=== PATIENT | female | born 2000 | race African-American/Black ===

== ENCOUNTER 2021-08-27 07:47 | Inpatient (IN) | payer OTHER ==
[2021-08-27] MEDS ORDERED: ceFAZolin (BATCH) 2 GM/100 ML BAG ONE (07:56)
[2021-08-27] MEDS ORDERED: Boostrix 0.5 ML (Tdap) VIAL ONE (07:56)
[2021-08-27 08:01] LABS: #Basophils 0.1 thou/uL (0.0-0.2); #Eosinphils 0.1 thou/uL (0.0-0.7); #Lymphocytes 1.9 thou/uL (1.20-3.40); #Monocytes 0.5 thou/uL (0.11-0.59); #Neutrophils 2.3 thou/uL (1.40-6.50); %Basophils 2.1 % (0.0-1.0); %Eosinophils 1.8 % (0.0-10.0); %Neutrophils 47.1 % (42.0-75.0); Hemoglobin 10.5 g/dL (12.0-16.0); Mean Corpuscular HGB CONC 31.7 g/dL (32.0-36.0); Mean Corpuscular Hemoglobin 29.6 pg (27.0-31.0); Mean Corpuscular Volume 93.5 fL (78.0-98.0); Mean Platelet Volume 9.3 fL (7.4-10.4); Platelet Count 160 thou/uL (130-400); RBC Distribution Width 12.1 % (11.5-14.5); Red Blood Cell (RBC) Count 3.55 mill/uL (4.20-5.40); White Blood Cell (WBC) Count 4.9 thou/uL (4.8-10.8)
[2021-08-27 08:09] LABS: INR-International Normal Ratio 1.3; PTT 36.3 sec (22.9-36.1); Prothrombin Time 16.2 sec (12.0-14.7)
[2021-08-27 08:10] LABS: BHCG - Serum Negative (NEGATIVE); Pregs Control Background? CLEAR/WHITE (CLR/WHITE); Pregs Control Bar Appear? YES (CONTROL BAR)
[2021-08-27] MEDS ORDERED: Fentanyl 100 MCG/2 ML VIAL ONE ×2 (08:13→08:17)
[2021-08-27] MEDS ORDERED: Rocuronium Bromide 10 MG/ML (10ML VIAL) ONE (08:17)
[2021-08-27 08:19] LABS: ALT (SGPT) 14 U/L (8-55); AST (SGOT) 21 U/L (5-34); Albumin 3.3 g/dL (3.5-5.0); Alkaline Phosphatase 34 U/L (40-110); Anion Gap 10 mmol/L (10-20); BUN (Urea Nitrogen) 9 mg/dL (7.0-18.7); Bilirubin, Total 0.2 mg/dL (0.2-1.2); Calc. Creatinine Clearance 0 mL/min (70-130); Calcium 7.5 mg/dL (7.8-10.44); Carbon Dioxide 22 mmol/L (22-29); Chloride 110 mmol/L (98-107); Glucose 110 mg/dL (70-105); Potassium 3.2 mmol/L (3.5-5.1); Protein, Total 5.3 g/dL (6.0-8.3); Sodium 139 mmol/L (136-145)
[2021-08-27] MEDS ORDERED: Norepinephrine 4 MG/4 ML VIAL ONE ×2 (08:27→08:32)
[2021-08-27] MEDS ORDERED: fentaNYL Citrate-0.9 % NaCl/PF 100 ML IV SCH (08:30)
[2021-08-27] MEDS ORDERED: Dextrose 50% Abboject 50 ML SYRINGE SLOW IVP PRN (08:35)
[2021-08-27] MEDS ORDERED: hydrALAZINE 20 MG/ML VIAL SLOW IVP PRN (08:35)
[2021-08-27] MEDS ORDERED: Insulin Regular 300 UNITS/3 ML VIAL SC PRN (08:35)
[2021-08-27] MEDS ORDERED: Dextrose 5% in Water 1,000 ML IV PRN (08:35)
[2021-08-27] MEDS ORDERED: Midazolam HCl 2 mg/2 ml Vial ONE (08:41)
[2021-08-27] MEDS ORDERED: Fentanyl 250 MCG/5 ML VIAL ONE (08:41)
[2021-08-27] MEDS ORDERED: EPINEPHrine 1 MG/10 ML Abboject SYRINGE ONE (08:44)
[2021-08-27] MEDS ORDERED: Norepinephrine 16 MG in Dextrose 5% in Water 234 ML IVPB SCH (08:45)
[2021-08-27] MEDS ORDERED: Ventilator Sedation Protocol 1 EACH FS SCH (08:45)
[2021-08-27] MEDS ORDERED: Propofol BOLUS 1,000 MG/100 ML VIAL IV PRN (09:00)
[2021-08-27] MEDS ORDERED: Fentanyl BOLUS 250 ML IVPB PRN (09:00)
[2021-08-27] MEDS ORDERED: DISCONTINUE PREVIOUS NARCOTIC PAIN MEDICATIONS AND BENZODIAZEPINES FS SCH (09:00)
[2021-08-27] MEDS ORDERED: Morphine 4 MG/ML VIAL SLOW IVP PRN (09:00)
[2021-08-27] MEDS ORDERED: Propofol 1,000 MG/100 ML VIAL IV PRN (09:00)
[2021-08-27] MEDS ORDERED: fentaNYL Citrate/PF 2,000 MCG in Sodium Chloride 0.9% 60 ML IV SCH (09:00)
[2021-08-27] MEDS ORDERED: Morphine 2 MG/ML VIAL SLOW IVP PRN (09:00)
[2021-08-27 09:09] LABS: Alcohol Less than 10 mg/dL (Less than 10); Magnesium 1.6 mg/dL (1.6-2.6); Phosphorus 2.6 mg/dL (2.3-4.7)
[2021-08-27] MEDS ORDERED: ePHEDrine 50 MG/ML VIAL ONE (09:46)
[2021-08-27] MEDS ORDERED: Bacitracin Zinc Ointment 30 gm TUBE ONE (09:57)
[2021-08-27] MEDS: Sodium Chloride 0.9% 1,000 ML IV SCH ×2 (10:38→18:32)
[2021-08-27] MEDS: Senokot S 8.6-50 MG TAB PO SCH ×2 (10:59→20:48)
[2021-08-27] MEDS: Polyethylene Glycol 3350 17 GM Packet PO SCH (10:59)
[2021-08-27] MEDS: Acetaminophen 500 MG TAB PO SCH ×3 (11:25→20:51)
[2021-08-27] MEDS: Famotidine/PF 20 mg/2ml Vial SLOW IVP SCH ×2 (11:26→20:48)
[2021-08-27 11:34] LABS: Bilirubin Negative (Negative); Blood, Urine Negative (Negative); Clarity Clear (Clear); Glucose, Urine (Dipstick) Normal (Negative); Ketone, Urine Trace mg/dL (Negative); Leukocyte Negative Leu/uL (Negative); Nitrite Negative (Negative); Protein, Urine (Dipstick) Negative (Neg-Trace); Specific Gravity, Urine 1.031 (1.002-1.036); Urobilinogen Normal mg/dL (Less than 2)
[2021-08-27 11:46] LABS: Amphetamine Not Detected (NotDetected); Barbiturates Screen Not Detected (NotDetected); Benzodiazepine Screen Not Detected (NotDetected); Cocaine Metabolite Screen Not Detected (NotDetected); Methadone Not Detected (NotDetected); Methamphetamine Detected (NotDetected); Opiate Screen Not Detected (NotDetected); Oxycodone Screen Not Detected (NotDetected); Phencyclidine (PCP) Not Detected (NotDetected); THC/Cannabinoid Screen Detected (NotDetected); Tricyclic Screen Not Detected (NotDetected)
[2021-08-27] MEDS ORDERED: Potassium Phosphate 30 MMOL in Sodium Chloride 0.9% 250 ML 250 ML IVPB SCH (12:30)
[2021-08-27] MEDS ORDERED: Magnesium 2 GM/50 ML(in water) 2 GM in Premix Bag 1 BAG IVPB SCH (12:30)
[2021-08-27] MEDS: fentaNYL Citrate-0.9 % NaCl/PF 100 ML IV SCH (12:33)
[2021-08-27] MEDS ORDERED: Atropine Sulfate 1 mg/10 ml Syringe ONE (15:58)
[2021-08-27] MEDS ORDERED: Atropine Sulfate 1 mg/10 ml Syringe IVP PRN (16:10)
[2021-08-27] MEDS: Lorazepam 2 MG/ML VIAL SLOW IVP PRN (21:22)
[2021-08-28] MEDS: Sodium Chloride 0.9% 1,000 ML IV SCH ×3 (02:07→18:14)
[2021-08-28] MEDS ORDERED: Sodium Chloride 0.9% 1,000 ML IV SCH (02:15)
[2021-08-28] MEDS: Acetaminophen 500 MG TAB PO SCH ×4 (02:24→21:39)
[2021-08-28] MEDS: fentaNYL Citrate-0.9 % NaCl/PF 100 ML IV SCH (02:25)
[2021-08-28 03:24] LABS: Anion Gap 11 mmol/L (10-20); BUN (Urea Nitrogen) 6 mg/dL (7.0-18.7); Calc. Creatinine Clearance 115 mL/min (70-130); Calcium 7.1 mg/dL (7.8-10.44); Carbon Dioxide 18 mmol/L (22-29); Chloride 112 mmol/L (98-107); Glucose 99 mg/dL (70-105); Phosphorus 3.2 mg/dL (2.3-4.7); Potassium 3.8 mmol/L (3.5-5.1); Sodium 137 mmol/L (136-145)
[2021-08-28 03:37] LABS: #Lymphocytes 1.6 thou/uL (1.20-3.40); #Monocytes 0.9 thou/uL (0.11-0.59); #Neutrophils 7.6 thou/uL (1.40-6.50); %Basophils 0.2 % (0.0-1.0); %Eosinophils 0.1 % (0.0-10.0); %Lymphocytes 15.9 % (21.0-51.0); %Monocytes 8.4 % (0.0-10.0); %Neutrophils 75.4 % (42.0-75.0); Hemoglobin 9.3 g/dL (12.0-16.0); Mean Corpuscular HGB CONC 32.8 g/dL (32.0-36.0); Mean Corpuscular Hemoglobin 30.6 pg (27.0-31.0); Mean Corpuscular Volume 93.4 fL (78.0-98.0); Mean Platelet Volume 9.9 fL (7.4-10.4); Platelet Count 152 thou/uL (130-400); RBC Distribution Width 12.2 % (11.5-14.5); Red Blood Cell (RBC) Count 3.03 mill/uL (4.20-5.40); White Blood Cell (WBC) Count 10.1 thou/uL (4.8-10.8)
[2021-08-28] MEDS ORDERED: Hydrocortisone Sod Succ/PF 100 mg/2 ml Vial IVP SCH (07:45)
[2021-08-28] MEDS ORDERED: Albumin 5% 250 ML ONE (07:50)
[2021-08-28] MEDS: Senokot S 8.6-50 MG TAB PO SCH ×2 (08:58→21:39)
[2021-08-28] MEDS: Polyethylene Glycol 3350 17 GM Packet PO SCH (08:58)
[2021-08-28] MEDS: Famotidine/PF 20 mg/2ml Vial SLOW IVP SCH (08:58)
[2021-08-28] MEDS: Midazolam HCl 2 mg/2 ml Vial SLOW IVP PRN ×2 (10:13→21:40)
[2021-08-28] MEDS: Ondansetron PF 4 MG/2 ML Vial IVP PRN (13:20)
[2021-08-28] MEDS: Hydrocortisone Sod Succ/PF 100 mg/2 ml Vial IVP SCH ×2 (13:55→21:39)
[2021-08-28] MEDS: Lorazepam 2 MG/ML VIAL SLOW IVP PRN (14:41)
[2021-08-28] MEDS ORDERED: Pantoprazole 40 MG VIAL IVP SCH (20:30)
[2021-08-29] MEDS: Acetaminophen 500 MG TAB PO SCH ×4 (03:44→20:49)
[2021-08-29] MEDS: Sodium Chloride 0.9% 1,000 ML IV SCH ×3 (03:45→16:52)
[2021-08-29] MEDS: Hydrocortisone Sod Succ/PF 100 mg/2 ml Vial IVP SCH ×3 (05:19→20:49)
[2021-08-29] MEDS: Midazolam HCl 2 mg/2 ml Vial SLOW IVP PRN ×2 (06:19→17:36)
[2021-08-29] MEDS: Polyethylene Glycol 3350 17 GM Packet PO SCH (07:23)
[2021-08-29] MEDS: Senokot S 8.6-50 MG TAB PO SCH ×2 (07:23→20:48)
[2021-08-29] MEDS: Lorazepam 2 MG/ML VIAL SLOW IVP PRN ×3 (08:52→22:44)
[2021-08-29] MEDS ORDERED: Pantoprazole 40 MG VIAL IVP SCH (09:00)
[2021-08-29 10:01] LABS: Hemoglobin 10.1 g/dL (12.0-16.0); Mean Corpuscular HGB CONC 32.1 g/dL (32.0-36.0); Mean Corpuscular Hemoglobin 29.9 pg (27.0-31.0); Mean Corpuscular Volume 92.9 fL (78.0-98.0); Mean Platelet Volume 9.8 fL (7.4-10.4); Platelet Count 192 thou/uL (130-400); RBC Distribution Width 12.4 % (11.5-14.5); Red Blood Cell (RBC) Count 3.39 mill/uL (4.20-5.40); White Blood Cell (WBC) Count 11.4 thou/uL (4.8-10.8)
[2021-08-29 10:19] LABS: #Lymphocytes 1.2 thou/uL (1.20-3.40); #Monocytes 1.2 thou/uL (0.11-0.59); %Basophils 0.1 % (0.0-1.0); %Eosinophils 0.1 % (0.0-10.0); %Lymphocytes 10.3 % (21.0-51.0); %Monocytes 10.6 % (0.0-10.0); %Neutrophils 78.8 % (42.0-75.0); MDiff Complete? YES; Platelet Morphology Comment Appears Adequate; Polychromasia SLIGHT = 2-3 cells (100X) (0-2/hpf)
[2021-08-29 10:37] LABS: Anion Gap 11 mmol/L (10-20); BUN (Urea Nitrogen) 7 mg/dL (7.0-18.7); Calc. Creatinine Clearance 131 mL/min (70-130); Calcium 7.9 mg/dL (7.8-10.44); Carbon Dioxide 20 mmol/L (22-29); Chloride 110 mmol/L (98-107); Glucose 97 mg/dL (70-105); Phosphorus 1.8 mg/dL (2.3-4.7); Potassium 3.9 mmol/L (3.5-5.1); Sodium 137 mmol/L (136-145)
[2021-08-29] MEDS ORDERED: Potassium Phosphate 30 MMOL in Sodium Chloride 0.9% 250 ML 250 ML IVPB SCH (10:45)
[2021-08-29] MEDS ORDERED: Fentanyl 250 MCG/5 ML VIAL ONE (11:03)
[2021-08-29] MEDS ORDERED: Midazolam HCl 5 mg/5 ml Vial ONE (11:14)
[2021-08-29] MEDS ORDERED: Dexamethasone 20 MG/5 ML VIAL ONE (11:27)
[2021-08-29] MEDS ORDERED: Vecuronium 10 MG VIAL ONE (11:27)
[2021-08-29] MEDS ORDERED: PROPOFOL 200 MG/20 ML VIAL ONE (11:27)
[2021-08-29] MEDS: fentaNYL Citrate-0.9 % NaCl/PF 100 ML IV SCH (14:24)
[2021-08-29] MEDS: ceFAZolin (BATCH) 2 GM in Premix Bag 1 BAG IVPB SCH ×2 (16:12→23:49)
[2021-08-29] MEDS: Pantoprazole 40 MG VIAL IVP SCH (20:50)
[2021-08-29] MEDS ORDERED: ALBUMIN 5% 25 GM/500 ML BAG IVPB SCH (23:15)
[2021-08-30] MEDS ORDERED: Melatonin 3 MG TAB PER TUBE SCH (02:30)
[2021-08-30] MEDS: Acetaminophen 500 MG TAB PO SCH ×2 (02:34→15:19)
[2021-08-30] MEDS: Sodium Chloride 0.9% 1,000 ML IV SCH ×3 (04:57→20:59)
[2021-08-30 05:39] LABS: #Lymphocytes 1.1 thou/uL (1.20-3.40); #Monocytes 1.6 thou/uL (0.11-0.59); #Neutrophils 12.7 thou/uL (1.40-6.50); %Basophils 0.1 % (0.0-1.0); %Eosinophils 0.1 % (0.0-10.0); %Lymphocytes 7.2 % (21.0-51.0); %Monocytes 10.4 % (0.0-10.0); %Neutrophils 82.2 % (42.0-75.0); Hemoglobin 9.3 g/dL (12.0-16.0); Mean Corpuscular HGB CONC 32.6 g/dL (32.0-36.0); Mean Corpuscular Hemoglobin 30.3 pg (27.0-31.0); Mean Corpuscular Volume 92.8 fL (78.0-98.0); Mean Platelet Volume 9.2 fL (7.4-10.4); Platelet Count 190 thou/uL (130-400); RBC Distribution Width 12.4 % (11.5-14.5); Red Blood Cell (RBC) Count 3.06 mill/uL (4.20-5.40); White Blood Cell (WBC) Count 15.5 thou/uL (4.8-10.8)
[2021-08-30 06:16] LABS: Anion Gap 11 mmol/L (10-20); BUN (Urea Nitrogen) 7 mg/dL (7.0-18.7); Calc. Creatinine Clearance 134 mL/min (70-130); Calcium 8.4 mg/dL (7.8-10.44); Carbon Dioxide 22 mmol/L (22-29); Chloride 109 mmol/L (98-107); Glucose 122 mg/dL (70-105); Magnesium 2.2 mg/dL (1.6-2.6); Phosphorus 2.3 mg/dL (2.3-4.7); Potassium 3.9 mmol/L (3.5-5.1); Sodium 138 mmol/L (136-145)
[2021-08-30] MEDS: Hydrocortisone Sod Succ/PF 100 mg/2 ml Vial IVP SCH ×2 (06:26→15:19)
[2021-08-30 07:21] LABS: Actual Bicarbonate (HCO3a) 22.4 mEq/L (22-28); Base Excess (BEa) -2.2 mEq/L (-2.0 to +3.0); CO2 Tension 37.7 mmHg (35.0-45.0); Calcium, Ionized (arterial) 1.18 mmol/L (1.12-1.30); Carboxyhemoglobin (COHb) 0.6 gm% (0.0-3.0); Hemoglobin (Hb) 12.1 g/dL (12.0-16.0); Potassium - ABG Lab 3.76 mmol/L (3.70-5.30); pH, Arterial 7.39 (7.35-7.45)
[2021-08-30 07:28] LABS: ALV-art Gradient 54.075 mmHg (0-20); Puncture Site RRA
[2021-08-30] MEDS: Pantoprazole 40 MG VIAL IVP SCH (08:59)
[2021-08-30] MEDS: Polyethylene Glycol 3350 17 GM Packet PO SCH (11:00)
[2021-08-30] MEDS: Enoxaparin Sodium 40 MG/0.4 ML SYRINGE SC SCH (11:00)
[2021-08-30] MEDS: Acetaminophen 650 MG/20.3 ML UDCUP PO SCH ×3 (11:00→20:58)
[2021-08-30] MEDS: Senokot S 8.6-50 MG TAB PO SCH ×2 (11:00→20:59)
[2021-08-30] MEDS: Acetaminophen W/ Codeine 5 ML UDCUP PO PRN (17:10)
[2021-08-31] MEDS: Acetaminophen 650 MG/20.3 ML UDCUP PO SCH ×4 (02:30→20:33)
[2021-08-31] MEDS ORDERED: traMADol HCl 50 MG TAB PO SCH (03:00)
[2021-08-31] MEDS: Sodium Chloride 0.9% 1,000 ML IV SCH ×3 (05:40→21:20)
[2021-08-31 05:43] LABS: #Monocytes 1.1 thou/uL (0.11-0.59); #Neutrophils 8.2 thou/uL (1.40-6.50); %Basophils 0.2 % (0.0-1.0); %Eosinophils 0.3 % (0.0-10.0); %Monocytes 9.3 % (0.0-10.0); %Neutrophils 72.2 % (42.0-75.0); Hemoglobin 9.8 g/dL (12.0-16.0); Mean Corpuscular HGB CONC 32.1 g/dL (32.0-36.0); Mean Corpuscular Volume 93.6 fL (78.0-98.0); Mean Platelet Volume 9.2 fL (7.4-10.4); Platelet Count 208 thou/uL (130-400); RBC Distribution Width 12.6 % (11.5-14.5); Red Blood Cell (RBC) Count 3.26 mill/uL (4.20-5.40); White Blood Cell (WBC) Count 11.3 thou/uL (4.8-10.8)
[2021-08-31 06:17] LABS: Anion Gap 13 mmol/L (10-20); BUN (Urea Nitrogen) 10 mg/dL (7.0-18.7); Calc. Creatinine Clearance 144 mL/min (70-130); Calcium 8.3 mg/dL (7.8-10.44); Carbon Dioxide 22 mmol/L (22-29); Chloride 109 mmol/L (98-107); Glucose 84 mg/dL (70-105); Magnesium 2.1 mg/dL (1.6-2.6); Phosphorus 1.8 mg/dL (2.3-4.7); Potassium 3.8 mmol/L (3.5-5.1); Sodium 140 mmol/L (136-145)
[2021-08-31] MEDS ORDERED: Potassium Phosphate 30 MMOL in Sodium Chloride 0.9% 250 ML 250 ML IVPB SCH (08:00)
[2021-08-31] MEDS ORDERED: Pantoprazole 40 MG VIAL IVP SCH (09:00)
[2021-08-31] MEDS ORDERED: Potassium Phosphate 15 MMOL in Sodium Chloride 0.9% 250 ML 250 ML IVPB SCH (09:15)
[2021-08-31] MEDS: Enoxaparin Sodium 40 MG/0.4 ML SYRINGE SC SCH (09:45)
[2021-08-31] MEDS: Polyethylene Glycol 3350 17 GM Packet PO SCH (13:07)
[2021-08-31] MEDS: Senokot S 8.6-50 MG TAB PO SCH ×2 (13:07→20:33)
[2021-08-31] MEDS: traMADol HCl 50 MG TAB PER TUBE PRN ×2 (14:21→20:35)
[2021-09-01] MEDS: Acetaminophen 650 MG/20.3 ML UDCUP PO SCH ×4 (02:03→20:05)
[2021-09-01] MEDS: traMADol HCl 50 MG TAB PER TUBE PRN ×3 (02:03→20:04)
[2021-09-01 05:38] LABS: #Lymphocytes 2.3 thou/uL (1.20-3.40); #Monocytes 1.1 thou/uL (0.11-0.59); #Neutrophils 5.4 thou/uL (1.40-6.50); %Basophils 0.4 % (0.0-1.0); %Eosinophils 0.3 % (0.0-10.0); %Lymphocytes 26.2 % (21.0-51.0); %Monocytes 12.6 % (0.0-10.0); %Neutrophils 60.5 % (42.0-75.0); Hemoglobin 10.2 g/dL (12.0-16.0); Mean Corpuscular HGB CONC 32.8 g/dL (32.0-36.0); Mean Corpuscular Hemoglobin 30.5 pg (27.0-31.0); Mean Platelet Volume 8.6 fL (7.4-10.4); Platelet Count 226 thou/uL (130-400); RBC Distribution Width 12.4 % (11.5-14.5); Red Blood Cell (RBC) Count 3.35 mill/uL (4.20-5.40); White Blood Cell (WBC) Count 8.8 thou/uL (4.8-10.8)
[2021-09-01 06:06] LABS: Anion Gap 11 mmol/L (10-20); BUN (Urea Nitrogen) 12 mg/dL (7.0-18.7); Calc. Creatinine Clearance 125 mL/min (70-130); Calcium 8.5 mg/dL (7.8-10.44); Carbon Dioxide 25 mmol/L (22-29); Chloride 106 mmol/L (98-107); Glucose 89 mg/dL (70-105); Magnesium 1.8 mg/dL (1.6-2.6); Phosphorus 2.7 mg/dL (2.3-4.7); Potassium 3.6 mmol/L (3.5-5.1); Sodium 138 mmol/L (136-145)
[2021-09-01] MEDS: Sodium Chloride 0.9% 1,000 ML IV SCH ×2 (06:10→14:57)
[2021-09-01] MEDS: Enoxaparin Sodium 40 MG/0.4 ML SYRINGE SC SCH (09:01)
[2021-09-01] MEDS: Senokot S 8.6-50 MG TAB PO SCH ×2 (09:02→20:05)
[2021-09-01] MEDS: Polyethylene Glycol 3350 17 GM Packet PO SCH (09:02)
[2021-09-01] MEDS ORDERED: Magnesium 2 GM/50 ML(in water) 2 GM in Premix Bag 1 BAG IVPB SCH (10:00)
[2021-09-01] MEDS: Famotidine 20 MG TAB PO SCH (20:05)
[2021-09-02] MEDS: traMADol HCl 50 MG TAB PER TUBE PRN ×3 (03:20→15:19)
[2021-09-02] MEDS: Acetaminophen 650 MG/20.3 ML UDCUP PO SCH ×4 (03:21→21:19)
[2021-09-02] MEDS: Famotidine 20 MG TAB PO SCH ×2 (08:54→21:10)
[2021-09-02] MEDS: Gabapentin 300 MG CAP PO SCH ×2 (08:55→21:11)
[2021-09-02] MEDS: Senokot S 8.6-50 MG TAB PO SCH ×2 (08:56→21:11)
[2021-09-02] MEDS: Enoxaparin Sodium 40 MG/0.4 ML SYRINGE SC SCH (08:56)
[2021-09-02] MEDS: Polyethylene Glycol 3350 17 GM Packet PO SCH (08:57)
[2021-09-02] MEDS: Methocarbamol 500 MG TAB PO PRN (21:11)
[2021-09-03] MEDS: Acetaminophen 650 MG/20.3 ML UDCUP PO SCH ×4 (02:20→21:04)
[2021-09-03] MEDS: traMADol HCl 50 MG TAB PER TUBE PRN ×2 (02:20→16:21)
[2021-09-03] MEDS: Melatonin 3 MG TAB PO PRN ×2 (02:20→21:03)
[2021-09-03] MEDS: Gabapentin 300 MG CAP PO SCH (08:11)
[2021-09-03] MEDS: Famotidine 20 MG TAB PO SCH ×2 (08:11→21:03)
[2021-09-03] MEDS: Methocarbamol 500 MG TAB PO PRN ×2 (08:12→21:03)
[2021-09-03] MEDS: Senokot S 8.6-50 MG TAB PO SCH ×2 (08:19→21:04)
[2021-09-03] MEDS: Ondansetron PF 4 MG/2 ML Vial IVP PRN (10:00)
[2021-09-03] MEDS: Pregabalin 50 MG CAP PO SCH ×2 (10:16→21:04)
[2021-09-03] MEDS: Polyethylene Glycol 3350 17 GM Packet PO SCH (10:23)
[2021-09-03] MEDS: Enoxaparin Sodium 40 MG/0.4 ML SYRINGE SC SCH (11:03)
[2021-09-03 14:00] LABS: #Eosinphils 0.1 thou/uL (0.0-0.7); #Lymphocytes 1.7 thou/uL (1.20-3.40); #Monocytes 0.7 thou/uL (0.11-0.59); #Neutrophils 4.5 thou/uL (1.40-6.50); %Basophils 0.6 % (0.0-1.0); %Eosinophils 1.2 % (0.0-10.0); %Lymphocytes 24.5 % (21.0-51.0); %Monocytes 9.8 % (0.0-10.0); Hemoglobin 10.8 g/dL (12.0-16.0); Mean Corpuscular HGB CONC 32.2 g/dL (32.0-36.0); Mean Corpuscular Hemoglobin 29.8 pg (27.0-31.0); Mean Corpuscular Volume 92.6 fL (78.0-98.0); Mean Platelet Volume 8.7 fL (7.4-10.4); Platelet Count 263 thou/uL (130-400); RBC Distribution Width 12.3 % (11.5-14.5); Red Blood Cell (RBC) Count 3.62 mill/uL (4.20-5.40); White Blood Cell (WBC) Count 7.1 thou/uL (4.8-10.8)
[2021-09-03 14:24] LABS: Albumin 3.6 g/dL (3.5-5.0); Anion Gap 11 mmol/L (10-20); BUN (Urea Nitrogen) 8 mg/dL (7.0-18.7); Calc. Creatinine Clearance 119 mL/min (70-130); Calcium 9.3 mg/dL (7.8-10.44); Carbon Dioxide 30 mmol/L (22-29); Chloride 104 mmol/L (98-107); Glucose 107 mg/dL (70-105); Magnesium 1.8 mg/dL (1.6-2.6); Phosphorus 4.3 mg/dL (2.3-4.7); Potassium 3.4 mmol/L (3.5-5.1); Sodium 142 mmol/L (136-145)
[2021-09-03] MEDS ORDERED: Magnesium 2 GM/50 ML(in water) 2 GM in Premix Bag 1 BAG IVPB SCH (14:45)
[2021-09-03] MEDS ORDERED: Potassium Chloride 30 MEQ in Sodium Chloride 0.9% 250 ML 250 ML IVPB SCH (16:00)
[2021-09-03] MEDS ORDERED: Hydrocortisone Sod Succ/PF 100 mg/2 ml Vial IVP SCH (16:30)
[2021-09-03] MEDS ORDERED: Lactated Ringer's 1,000 ML IV SCH (16:30)
[2021-09-03] MEDS: Hydrocortisone Sod Succ/PF 100 mg/2 ml Vial IVP SCH (21:05)
[2021-09-04] MEDS: Acetaminophen W/ Codeine 5 ML UDCUP PO PRN (00:38)
[2021-09-04] MEDS ORDERED: Melatonin 3 MG TAB PO ONE (02:50)
[2021-09-04] MEDS: Acetaminophen 650 MG/20.3 ML UDCUP PO SCH ×4 (03:10→21:57)
[2021-09-04] MEDS: Methocarbamol 500 MG TAB PO PRN ×2 (03:10→16:01)
[2021-09-04] MEDS: Hydrocortisone Sod Succ/PF 100 mg/2 ml Vial IVP SCH ×2 (05:26→14:54)
[2021-09-04 06:42] LABS: Anion Gap 12 mmol/L (10-20); BUN (Urea Nitrogen) 6 mg/dL (7.0-18.7); Calc. Creatinine Clearance 127 mL/min (70-130); Carbon Dioxide 27 mmol/L (22-29); Chloride 105 mmol/L (98-107); Glucose 97 mg/dL (70-105); Magnesium 1.9 mg/dL (1.6-2.6); Phosphorus 4.1 mg/dL (2.3-4.7); Potassium 3.9 mmol/L (3.5-5.1); Sodium 140 mmol/L (136-145)
[2021-09-04] MEDS ORDERED: Lactated Ringer's 1,000 ML IV SCH (08:00)
[2021-09-04] MEDS: Enoxaparin Sodium 40 MG/0.4 ML SYRINGE SC SCH (09:33)
[2021-09-04] MEDS: Pregabalin 50 MG CAP PO SCH ×2 (09:34→21:49)
[2021-09-04] MEDS: Polyethylene Glycol 3350 17 GM Packet PO SCH (09:34)
[2021-09-04] MEDS: Senokot S 8.6-50 MG TAB PO SCH ×2 (09:34→22:02)
[2021-09-04] MEDS: Famotidine 20 MG TAB PO SCH ×2 (09:34→21:49)
[2021-09-04] MEDS: Melatonin 3 MG TAB PO SCH (21:49)
[2021-09-05] MEDS: diphenhydrAMINE 25 MG CAP PO SCH ×2 (03:01→03:07)
[2021-09-05] MEDS: Acetaminophen 650 MG/20.3 ML UDCUP PO SCH ×4 (03:01→20:51)
[2021-09-05] MEDS: Famotidine 20 MG TAB PO SCH ×2 (09:04→20:51)
[2021-09-05] MEDS: Pregabalin 50 MG CAP PO SCH ×2 (09:05→20:51)
[2021-09-05] MEDS: Enoxaparin Sodium 40 MG/0.4 ML SYRINGE SC SCH (09:05)
[2021-09-05] MEDS: Polyethylene Glycol 3350 17 GM Packet PO SCH (09:06)
[2021-09-05] MEDS: Senokot S 8.6-50 MG TAB PO SCH ×2 (09:06→20:51)
[2021-09-05] MEDS: Melatonin 3 MG TAB PO SCH (20:51)
[2021-09-05] MEDS: Methocarbamol 500 MG TAB PO PRN (20:52)
[2021-09-06] MEDS: Acetaminophen 650 MG/20.3 ML UDCUP PO SCH ×5 (05:03→21:22)
[2021-09-06] MEDS: Methocarbamol 500 MG TAB PO PRN ×2 (05:05→14:22)
[2021-09-06] MEDS: Famotidine 20 MG TAB PO SCH ×2 (09:03→21:20)
[2021-09-06] MEDS: Pregabalin 50 MG CAP PO SCH ×2 (09:03→21:20)
[2021-09-06] MEDS: Senokot S 8.6-50 MG TAB PO SCH ×2 (09:03→21:21)
[2021-09-06] MEDS: Polyethylene Glycol 3350 17 GM Packet PO SCH (09:04)
[2021-09-06] MEDS: Enoxaparin Sodium 40 MG/0.4 ML SYRINGE SC SCH (09:04)
[2021-09-06] MEDS ORDERED: Sodium Chloride 0.9% 1,000 ML IV SCH (14:15)
[2021-09-06] MEDS ORDERED: traMADol HCl 50 MG TAB PO PRN (14:40)
[2021-09-06] MEDS: traMADol HCl 50 MG TAB PO SCH (18:17)
[2021-09-06] MEDS: Melatonin 3 MG TAB PO SCH (21:20)
[2021-09-07] MEDS: traMADol HCl 50 MG TAB PO SCH ×5 (00:50→23:57)
[2021-09-07] MEDS: Acetaminophen 650 MG/20.3 ML UDCUP PO SCH ×5 (04:12→21:00)
[2021-09-07] MEDS: Pregabalin 50 MG CAP PO SCH ×2 (09:30→20:45)
[2021-09-07] MEDS: Famotidine 20 MG TAB PO SCH ×2 (09:31→20:45)
[2021-09-07] MEDS: Enoxaparin Sodium 40 MG/0.4 ML SYRINGE SC SCH (09:32)
[2021-09-07] MEDS: Polyethylene Glycol 3350 17 GM Packet PO SCH (09:32)
[2021-09-07] MEDS: Methocarbamol 500 MG TAB PO PRN (09:36)
[2021-09-07] MEDS: Senokot S 8.6-50 MG TAB PO SCH ×2 (15:19→20:46)
[2021-09-07] MEDS: Midodrine HCl 5 MG TAB PO SCH ×2 (15:28→15:31)
[2021-09-07] MEDS ORDERED: methylPREDNISolone Sod Succ 40 MG VIAL IVP SCH (18:00)
[2021-09-07] MEDS: Melatonin 3 MG TAB PO SCH (20:45)
[2021-09-07] MEDS ORDERED: Midodrine HCl 5 MG TAB PO SCH (21:00)
[2021-09-08] MEDS: Acetaminophen 650 MG/20.3 ML UDCUP PO SCH ×4 (03:14→21:58)
[2021-09-08] MEDS: traMADol HCl 50 MG TAB PO SCH ×4 (05:57→23:57)
[2021-09-08 06:45] LABS: Hemoglobin 10.9 g/dL (12.0-16.0)
[2021-09-08 07:02] LABS: Phosphorus 4.2 mg/dL (2.3-4.7)
[2021-09-08 07:06] LABS: Anion Gap 13 mmol/L (10-20); BUN (Urea Nitrogen) 7 mg/dL (7.0-18.7); Calc. Creatinine Clearance 124 mL/min (70-130); Calcium 9.3 mg/dL (7.8-10.44); Carbon Dioxide 26 mmol/L (22-29); Chloride 104 mmol/L (98-107); Glucose 115 mg/dL (70-105); Magnesium 1.9 mg/dL (1.6-2.6); Potassium 3.8 mmol/L (3.5-5.1); Sodium 139 mmol/L (136-145)
[2021-09-08] MEDS: Senokot S 8.6-50 MG TAB PO SCH ×2 (08:29→21:58)
[2021-09-08] MEDS: Famotidine 20 MG TAB PO SCH ×2 (08:29→21:57)
[2021-09-08] MEDS: Enoxaparin Sodium 40 MG/0.4 ML SYRINGE SC SCH (08:30)
[2021-09-08] MEDS: Polyethylene Glycol 3350 17 GM Packet PO SCH (08:30)
[2021-09-08] MEDS: Pregabalin 50 MG CAP PO SCH ×2 (08:31→21:58)
[2021-09-08] MEDS: Melatonin 3 MG TAB PO SCH (21:58)
[2021-09-09] MEDS: Acetaminophen 650 MG/20.3 ML UDCUP PO SCH ×4 (04:31→20:57)
[2021-09-09] MEDS: traMADol HCl 50 MG TAB PO SCH ×3 (06:28→19:08)
[2021-09-09] MEDS: Enoxaparin Sodium 40 MG/0.4 ML SYRINGE SC SCH (09:46)
[2021-09-09] MEDS: Polyethylene Glycol 3350 17 GM Packet PO SCH (09:48)
[2021-09-09] MEDS: Pregabalin 50 MG CAP PO SCH ×2 (09:48→20:58)
[2021-09-09] MEDS: Famotidine 20 MG TAB PO SCH ×2 (09:48→20:58)
[2021-09-09] MEDS: Senokot S 8.6-50 MG TAB PO SCH ×2 (09:48→20:59)
[2021-09-09] MEDS: Melatonin 3 MG TAB PO SCH (20:58)
[2021-09-10] MEDS: traMADol HCl 50 MG TAB PO SCH ×4 (00:05→18:33)
[2021-09-10] MEDS: Acetaminophen 650 MG/20.3 ML UDCUP PO SCH ×4 (04:26→20:44)
[2021-09-10] MEDS: Pregabalin 50 MG CAP PO SCH ×2 (08:54→20:45)
[2021-09-10] MEDS: Famotidine 20 MG TAB PO SCH ×2 (08:55→20:46)
[2021-09-10] MEDS: Enoxaparin Sodium 40 MG/0.4 ML SYRINGE SC SCH (08:56)
[2021-09-10] MEDS: Polyethylene Glycol 3350 17 GM Packet PO SCH (09:06)
[2021-09-10] MEDS: Senokot S 8.6-50 MG TAB PO SCH ×2 (09:06→20:44)
[2021-09-10] MEDS: Ondansetron PF 4 MG/2 ML Vial IVP PRN (10:05)
[2021-09-10] MEDS ORDERED: Lactated Ringer's 1,000 ML IV SCH (16:00)
[2021-09-10] MEDS ORDERED: Sodium Chloride 0.9% 1,000 ML IV SCH (16:00)
[2021-09-10] MEDS: Melatonin 3 MG TAB PO SCH (20:45)
[2021-09-11] MEDS: traMADol HCl 50 MG TAB PO SCH ×2 (00:02→06:36)
[2021-09-11] MEDS: Acetaminophen 650 MG/20.3 ML UDCUP PO SCH ×3 (03:30→15:39)
[2021-09-11] MEDS ORDERED: Lactated Ringer's 1,000 ML IV SCH (06:45)
[2021-09-11] MEDS: Senokot S 8.6-50 MG TAB PO SCH ×2 (08:40→20:39)
[2021-09-11] MEDS: Polyethylene Glycol 3350 17 GM Packet PO SCH (08:40)
[2021-09-11] MEDS: Enoxaparin Sodium 40 MG/0.4 ML SYRINGE SC SCH (08:40)
[2021-09-11] MEDS: Pregabalin 50 MG CAP PO SCH ×3 (13:18→23:49)
[2021-09-11] MEDS: traMADol HCl 50 MG TAB PO PRN ×2 (15:40→20:37)
[2021-09-11] MEDS ORDERED: Midodrine HCl 5 MG TAB PO SCH ×2 (16:00→21:00)
[2021-09-11] MEDS: Melatonin 3 MG TAB PO SCH (20:38)
[2021-09-11] MEDS: Acetaminophen 500 MG TAB PO SCH (23:48)
[2021-09-12] MEDS ORDERED: Midodrine HCl 5 MG TAB PO SCH (05:30)
[2021-09-12] MEDS: Acetaminophen 500 MG TAB PO SCH ×2 (06:58→13:39)
[2021-09-12] MEDS: Enoxaparin Sodium 40 MG/0.4 ML SYRINGE SC SCH (09:36)
[2021-09-12] MEDS: Pregabalin 50 MG CAP PO SCH ×2 (09:37→22:18)
[2021-09-12] MEDS: Senokot S 8.6-50 MG TAB PO SCH ×2 (09:38→22:18)
[2021-09-12] MEDS: Polyethylene Glycol 3350 17 GM Packet PO SCH (09:38)
[2021-09-12] MEDS: Midodrine HCl 5 MG TAB PO SCH ×2 (13:40→22:18)
[2021-09-12] MEDS ORDERED: Acetaminophen 500 MG TAB PO PRN (15:29)
[2021-09-12] MEDS: Cyclobenzaprine 10 MG TAB PO PRN (16:51)
[2021-09-12] MEDS ORDERED: diphenhydrAMINE 25 MG CAP PO PRN (20:17)
[2021-09-12] MEDS: Melatonin 3 MG TAB PO SCH (22:17)
[2021-09-13] MEDS: Enoxaparin Sodium 40 MG/0.4 ML SYRINGE SC SCH (09:13)
[2021-09-13] MEDS: Midodrine HCl 5 MG TAB PO SCH ×3 (09:14→21:01)
[2021-09-13] MEDS: Pregabalin 50 MG CAP PO SCH ×2 (09:15→20:42)
[2021-09-13] MEDS: Polyethylene Glycol 3350 17 GM Packet PO SCH (09:15)
[2021-09-13] MEDS: Senokot S 8.6-50 MG TAB PO SCH ×2 (09:16→20:42)
[2021-09-13] MEDS: Ibuprofen 200 MG TAB PO PRN (14:48)
[2021-09-13] MEDS: Sodium Chloride 0.65% Nasal 44 ML BOT EA NARE PRN ×2 (17:11→20:34)
[2021-09-13] MEDS: Melatonin 3 MG TAB PO SCH (20:44)
[2021-09-14] MEDS: Cyclobenzaprine 10 MG TAB PO PRN ×2 (01:25→10:35)
[2021-09-14] MEDS: Polyethylene Glycol 3350 17 GM Packet PO SCH (09:12)
[2021-09-14] MEDS: Enoxaparin Sodium 40 MG/0.4 ML SYRINGE SC SCH (09:12)
[2021-09-14] MEDS: Pregabalin 50 MG CAP PO SCH ×2 (09:13→20:58)
[2021-09-14] MEDS: Senokot S 8.6-50 MG TAB PO SCH ×2 (09:13→20:59)
[2021-09-14] MEDS: Midodrine HCl 5 MG TAB PO SCH ×3 (09:13→20:58)
[2021-09-14] MEDS ORDERED: Sodium Chloride 0.9% 1,000 ML IV SCH (12:00)
[2021-09-14] MEDS: Melatonin 3 MG TAB PO SCH (20:58)
[2021-09-15] MEDS: Cyclobenzaprine 10 MG TAB PO PRN ×2 (03:08→22:09)
[2021-09-15] MEDS: Midodrine HCl 5 MG TAB PO SCH ×3 (09:10→22:10)
[2021-09-15] MEDS: Enoxaparin Sodium 40 MG/0.4 ML SYRINGE SC SCH (09:10)
[2021-09-15] MEDS: Pregabalin 50 MG CAP PO SCH ×2 (09:11→22:08)
[2021-09-15] MEDS: Senokot S 8.6-50 MG TAB PO SCH ×2 (09:12→22:10)
[2021-09-15] MEDS: Polyethylene Glycol 3350 17 GM Packet PO SCH (09:12)
[2021-09-15] MEDS: Melatonin 3 MG TAB PO SCH (22:08)
[2021-09-15] MEDS: Ibuprofen 200 MG TAB PO PRN (22:09)
[2021-09-16] MEDS: Enoxaparin Sodium 40 MG/0.4 ML SYRINGE SC SCH (09:44)
[2021-09-16] MEDS: Pregabalin 50 MG CAP PO SCH ×2 (09:45→20:53)
[2021-09-16] MEDS: Midodrine HCl 5 MG TAB PO SCH ×3 (09:45→20:54)
[2021-09-16] MEDS: Polyethylene Glycol 3350 17 GM Packet PO SCH (09:46)
[2021-09-16] MEDS: Senokot S 8.6-50 MG TAB PO SCH ×2 (09:46→20:52)
[2021-09-16] MEDS: Cyclobenzaprine 10 MG TAB PO PRN (15:11)
[2021-09-16] MEDS: traMADol HCl 50 MG TAB PO PRN (20:52)
[2021-09-16] MEDS: Melatonin 3 MG TAB PO SCH (20:54)
[2021-09-17] MEDS: Midodrine HCl 5 MG TAB PO SCH ×3 (08:51→21:04)
[2021-09-17] MEDS: Enoxaparin Sodium 40 MG/0.4 ML SYRINGE SC SCH (08:51)
[2021-09-17] MEDS: Senokot S 8.6-50 MG TAB PO SCH ×2 (08:52→20:58)
[2021-09-17] MEDS: Pregabalin 50 MG CAP PO SCH ×2 (08:52→21:05)
[2021-09-17] MEDS: Polyethylene Glycol 3350 17 GM Packet PO SCH (08:53)
[2021-09-17] MEDS: Cyclobenzaprine 10 MG TAB PO PRN ×2 (13:49→21:09)
[2021-09-17] MEDS: traMADol HCl 50 MG TAB PO PRN (17:27)
[2021-09-17] MEDS: Melatonin 3 MG TAB PO SCH (21:04)
[2021-09-18] MEDS: Pregabalin 50 MG CAP PO SCH ×2 (09:16→20:40)
[2021-09-18] MEDS: Enoxaparin Sodium 40 MG/0.4 ML SYRINGE SC SCH (09:16)
[2021-09-18] MEDS: Midodrine HCl 5 MG TAB PO SCH ×3 (09:17→20:41)
[2021-09-18] MEDS: Polyethylene Glycol 3350 17 GM Packet PO SCH (09:17)
[2021-09-18] MEDS: Senokot S 8.6-50 MG TAB PO SCH ×2 (09:17→20:39)
[2021-09-18] MEDS: Cyclobenzaprine 10 MG TAB PO PRN ×2 (09:19→19:11)
[2021-09-18] MEDS: Melatonin 3 MG TAB PO SCH (20:40)
[2021-09-19] MEDS: Polyethylene Glycol 3350 17 GM Packet PO SCH (08:07)
[2021-09-19] MEDS: Senokot S 8.6-50 MG TAB PO SCH ×2 (08:07→21:10)
[2021-09-19] MEDS: Pregabalin 50 MG CAP PO SCH ×2 (08:08→21:11)
[2021-09-19] MEDS: Cyclobenzaprine 10 MG TAB PO PRN ×2 (08:08→21:10)
[2021-09-19] MEDS: Midodrine HCl 5 MG TAB PO SCH ×3 (08:08→21:11)
[2021-09-19] MEDS: Enoxaparin Sodium 40 MG/0.4 ML SYRINGE SC SCH (08:09)
[2021-09-19] MEDS: traMADol HCl 50 MG TAB PO PRN (12:02)
[2021-09-19] MEDS: Melatonin 3 MG TAB PO SCH (21:10)
[2021-09-20] MEDS: traMADol HCl 50 MG TAB PO PRN ×2 (02:29→21:29)
[2021-09-20] MEDS: Midodrine HCl 5 MG TAB PO SCH ×3 (09:13→21:26)
[2021-09-20] MEDS: Senokot S 8.6-50 MG TAB PO SCH ×2 (09:13→21:19)
[2021-09-20] MEDS: Enoxaparin Sodium 40 MG/0.4 ML SYRINGE SC SCH (09:14)
[2021-09-20] MEDS: Cyclobenzaprine 10 MG TAB PO PRN ×2 (09:50→15:56)
[2021-09-20] MEDS: Polyethylene Glycol 3350 17 GM Packet PO SCH (09:50)
[2021-09-20] MEDS: Pregabalin 75 MG CAP PO SCH ×2 (09:51→21:28)
[2021-09-20] MEDS: Pregabalin 50 MG CAP PO SCH (11:47)
[2021-09-20] MEDS: Ondansetron ODT 4 MG TAB PO PRN (12:31)
[2021-09-20] MEDS ORDERED: Promethazine HCl 25 MG/ML VIAL IM PRN (13:07)
[2021-09-20] MEDS: Melatonin 3 MG TAB PO SCH (21:25)
[2021-09-21] MEDS: Cyclobenzaprine 10 MG TAB PO PRN ×3 (00:15→18:42)
[2021-09-21] MEDS: traMADol HCl 50 MG TAB PO PRN ×3 (05:06→14:22)
[2021-09-21] MEDS: Ondansetron ODT 4 MG TAB PO PRN (09:41)
[2021-09-21] MEDS: Polyethylene Glycol 3350 17 GM Packet PO SCH ×2 (09:42→12:50)
[2021-09-21] MEDS: Enoxaparin Sodium 40 MG/0.4 ML SYRINGE SC SCH ×2 (09:43→13:16)
[2021-09-21 10:45] LABS: Hemoglobin 11.8 g/dL (12.0-16.0); Platelet Count 245 thou/uL (130-400)
[2021-09-21 11:01] LABS: Calc. Creatinine Clearance 115 mL/min (70-130)
[2021-09-21] MEDS: Pregabalin 75 MG CAP PO SCH ×2 (12:49→23:19)
[2021-09-21] MEDS: Midodrine HCl 5 MG TAB PO SCH ×3 (12:49→23:19)
[2021-09-21] MEDS: Senokot S 8.6-50 MG TAB PO SCH ×2 (12:49→23:19)
[2021-09-21] MEDS: Scopolamine 1.5 mg/72 hour Patch TD SCH (14:22)
[2021-09-21] MEDS: Melatonin 3 MG TAB PO SCH (23:18)
[2021-09-22] MEDS: Polyethylene Glycol 3350 17 GM Packet PO SCH (09:46)
[2021-09-22] MEDS: Pregabalin 75 MG CAP PO SCH ×2 (09:46→20:26)
[2021-09-22] MEDS: Midodrine HCl 5 MG TAB PO SCH ×3 (09:48→21:22)
[2021-09-22] MEDS: Senokot S 8.6-50 MG TAB PO SCH ×2 (09:49→21:22)
[2021-09-22] MEDS: Enoxaparin Sodium 40 MG/0.4 ML SYRINGE SC SCH (09:49)
[2021-09-22] MEDS: Cyclobenzaprine 10 MG TAB PO PRN ×3 (09:53→21:23)
[2021-09-22] MEDS: traMADol HCl 50 MG TAB PO PRN ×2 (11:44→20:25)
[2021-09-22] MEDS: Melatonin 3 MG TAB PO SCH (21:22)
[2021-09-23] MEDS: traMADol HCl 50 MG TAB PO PRN ×2 (03:41→17:52)
[2021-09-23] MEDS: Midodrine HCl 5 MG TAB PO SCH ×3 (08:20→20:45)
[2021-09-23] MEDS: Enoxaparin Sodium 40 MG/0.4 ML SYRINGE SC SCH (08:20)
[2021-09-23] MEDS: Cyclobenzaprine 10 MG TAB PO PRN ×2 (08:21→20:43)
[2021-09-23] MEDS: Pregabalin 75 MG CAP PO SCH ×2 (08:23→20:45)
[2021-09-23] MEDS: Polyethylene Glycol 3350 17 GM Packet PO SCH (08:23)
[2021-09-23] MEDS: Senokot S 8.6-50 MG TAB PO SCH ×2 (08:23→20:46)
[2021-09-23] MEDS: Sodium Chloride 0.65% Nasal 44 ML BOT EA NARE PRN (09:33)
[2021-09-23] MEDS: tiZANidine HCl 4 MG TAB PO SCH ×2 (09:33→15:30)
[2021-09-23] MEDS: Melatonin 3 MG TAB PO SCH (20:43)
[2021-09-24] MEDS: traMADol HCl 50 MG TAB PO PRN ×3 (04:40→22:07)
[2021-09-24] MEDS: Senokot S 8.6-50 MG TAB PO SCH ×2 (09:43→22:08)
[2021-09-24] MEDS: Pregabalin 75 MG CAP PO SCH ×2 (09:43→22:06)
[2021-09-24] MEDS: Enoxaparin Sodium 40 MG/0.4 ML SYRINGE SC SCH (09:43)
[2021-09-24] MEDS: Midodrine HCl 5 MG TAB PO SCH ×3 (09:43→22:08)
[2021-09-24] MEDS: Polyethylene Glycol 3350 17 GM Packet PO SCH (09:44)
[2021-09-24] MEDS: Cyclobenzaprine 10 MG TAB PO PRN ×2 (09:49→18:11)
[2021-09-24] MEDS: Scopolamine 1.5 mg/72 hour Patch TD SCH (11:53)
[2021-09-24] MEDS: Ibuprofen 200 MG TAB PO PRN (18:11)
[2021-09-24] MEDS: Melatonin 3 MG TAB PO SCH (22:06)
[2021-09-25] MEDS: Cyclobenzaprine 10 MG TAB PO PRN ×3 (01:32→18:13)
[2021-09-25] MEDS: Ibuprofen 200 MG TAB PO PRN ×2 (09:47→23:16)
[2021-09-25] MEDS: Polyethylene Glycol 3350 17 GM Packet PO SCH (09:48)
[2021-09-25] MEDS: Enoxaparin Sodium 40 MG/0.4 ML SYRINGE SC SCH (09:48)
[2021-09-25] MEDS: Midodrine HCl 5 MG TAB PO SCH ×3 (09:48→23:17)
[2021-09-25] MEDS: Pregabalin 75 MG CAP PO SCH ×2 (09:48→23:18)
[2021-09-25] MEDS: Senokot S 8.6-50 MG TAB PO SCH ×2 (09:49→23:18)
[2021-09-25] MEDS ORDERED: Acetaminophen 500 MG TAB PO PRN (11:00)
[2021-09-25] MEDS: traMADol HCl 50 MG TAB PO PRN (18:12)
[2021-09-25] MEDS: Melatonin 3 MG TAB PO SCH (23:16)
[2021-09-26] MEDS: Cyclobenzaprine 10 MG TAB PO PRN ×2 (02:26→18:49)
[2021-09-26] MEDS: traMADol HCl 50 MG TAB PO PRN ×2 (02:26→21:10)
[2021-09-26] MEDS: Midodrine HCl 5 MG TAB PO SCH ×3 (10:01→21:10)
[2021-09-26] MEDS: Pregabalin 75 MG CAP PO SCH ×2 (10:01→21:11)
[2021-09-26] MEDS: Senokot S 8.6-50 MG TAB PO SCH ×2 (10:02→22:13)
[2021-09-26] MEDS: Polyethylene Glycol 3350 17 GM Packet PO SCH (10:03)
[2021-09-26] MEDS: Enoxaparin Sodium 40 MG/0.4 ML SYRINGE SC SCH (10:03)
[2021-09-26] MEDS: Ibuprofen 200 MG TAB PO PRN (15:03)
[2021-09-26] MEDS: Melatonin 3 MG TAB PO SCH (21:10)
[2021-09-26] MEDS: Sodium Chloride 0.65% Nasal 44 ML BOT EA NARE PRN (21:15)
[2021-09-27] MEDS: Cyclobenzaprine 10 MG TAB PO PRN ×3 (02:54→14:46)
[2021-09-27] MEDS: Ondansetron ODT 4 MG TAB PO PRN (03:05)
[2021-09-27] MEDS: Scopolamine 1.5 mg/72 hour Patch TD SCH (10:22)
[2021-09-27] MEDS: Pregabalin 75 MG CAP PO SCH ×2 (10:22→21:26)
[2021-09-27] MEDS: Midodrine HCl 5 MG TAB PO SCH ×3 (10:23→21:26)
[2021-09-27] MEDS: Enoxaparin Sodium 40 MG/0.4 ML SYRINGE SC SCH (10:24)
[2021-09-27] MEDS: Polyethylene Glycol 3350 17 GM Packet PO SCH (10:51)
[2021-09-27] MEDS: Senokot S 8.6-50 MG TAB PO SCH ×2 (10:51→21:26)
[2021-09-27] MEDS: Melatonin 3 MG TAB PO SCH (21:26)
[2021-09-27] MEDS: traMADol HCl 50 MG TAB PO PRN (21:27)
[2021-09-27] MEDS: Sodium Chloride 0.65% Nasal 44 ML BOT EA NARE PRN (21:38)
[2021-09-28] MEDS: Cyclobenzaprine 10 MG TAB PO PRN ×2 (04:07→13:30)
[2021-09-28] MEDS: Sodium Chloride 0.65% Nasal 44 ML BOT EA NARE PRN (05:33)
[2021-09-28] MEDS: Senokot S 8.6-50 MG TAB PO SCH ×2 (09:13→20:44)
[2021-09-28] MEDS: Polyethylene Glycol 3350 17 GM Packet PO SCH (09:31)
[2021-09-28] MEDS: Pregabalin 75 MG CAP PO SCH (09:55)
[2021-09-28] MEDS: Midodrine HCl 5 MG TAB PO SCH ×3 (09:55→20:42)
[2021-09-28] MEDS: Enoxaparin Sodium 40 MG/0.4 ML SYRINGE SC SCH (10:10)
[2021-09-28] MEDS: traMADol HCl 50 MG TAB PO PRN (15:15)
[2021-09-28] MEDS: Melatonin 3 MG TAB PO SCH (20:42)
[2021-09-28] MEDS ORDERED: Gabapentin 300 MG CAP PO SCH (21:00)
[2021-09-28] MEDS ORDERED: Pregabalin 50 MG CAP PO SCH (21:00)
[2021-09-28] MEDS: Scopolamine 1.5 mg/72 hour Patch TD SCH (22:12)
[2021-09-29] MEDS: Cyclobenzaprine 10 MG TAB PO PRN ×3 (00:44→20:22)
[2021-09-29] MEDS: traMADol HCl 50 MG TAB PO PRN ×2 (00:44→09:53)
[2021-09-29] MEDS: Pregabalin 50 MG CAP PO SCH ×2 (06:26→15:39)
[2021-09-29] MEDS: Sodium Chloride 0.65% Nasal 44 ML BOT EA NARE PRN (06:54)
[2021-09-29] MEDS: Midodrine HCl 5 MG TAB PO SCH ×3 (09:50→20:24)
[2021-09-29] MEDS: Enoxaparin Sodium 40 MG/0.4 ML SYRINGE SC SCH (09:50)
[2021-09-29] MEDS: Polyethylene Glycol 3350 17 GM Packet PO SCH (09:51)
[2021-09-29] MEDS: Senokot S 8.6-50 MG TAB PO SCH ×2 (09:52→20:24)
[2021-09-29] MEDS ORDERED: Ibuprofen 200 MG TAB PO SCH (13:00)
[2021-09-29] MEDS: Pregabalin 75 MG CAP PO SCH ×3 (14:50→20:22)
[2021-09-29] MEDS: Famotidine 20 MG TAB PO SCH (20:22)
[2021-09-29] MEDS: Melatonin 3 MG TAB PO SCH (20:23)
[2021-09-29] MEDS: Ibuprofen 200 MG TAB PO SCH (20:24)
[2021-09-29 20:32] LABS: ALT (SGPT) Less than 7 U/L (8-55); AST (SGOT) 15 U/L (5-34); Albumin 4.4 g/dL (3.5-5.0); Alkaline Phosphatase 56 U/L (40-110); Anion Gap 12 mmol/L (10-20); BUN (Urea Nitrogen) 13 mg/dL (7.0-18.7); Bilirubin, Direct 0.1 mg/dL (0.1-0.3); Bilirubin, Total 0.3 mg/dL (0.2-1.2); Calc. Creatinine Clearance 117 mL/min (70-130); Calcium 9.9 mg/dL (7.8-10.44); Carbon Dioxide 30 mmol/L (22-29); Chloride 102 mmol/L (98-107); Glucose 91 mg/dL (70-105); Magnesium 1.8 mg/dL (1.6-2.6); Phosphorus 4.5 mg/dL (2.3-4.7); Potassium 3.8 mmol/L (3.5-5.1); Protein, Total 7.7 g/dL (6.0-8.3); Sodium 140 mmol/L (136-145)
[2021-09-30] MEDS: traMADol HCl 50 MG TAB PO PRN (05:05)
[2021-09-30] MEDS: Pregabalin 75 MG CAP PO SCH ×2 (05:05→14:23)
[2021-09-30] MEDS: Ibuprofen 200 MG TAB PO SCH ×2 (06:13→14:20)
[2021-09-30] MEDS: Enoxaparin Sodium 40 MG/0.4 ML SYRINGE SC SCH (10:12)
[2021-09-30] MEDS: Famotidine 20 MG TAB PO SCH ×2 (10:13→20:54)
[2021-09-30] MEDS: Midodrine HCl 5 MG TAB PO SCH ×3 (10:14→20:53)
[2021-09-30] MEDS: Senokot S 8.6-50 MG TAB PO SCH ×2 (10:15→20:54)
[2021-09-30] MEDS: Polyethylene Glycol 3350 17 GM Packet PO SCH (10:15)
[2021-09-30] MEDS: Cyclobenzaprine 10 MG TAB PO PRN ×2 (13:58→22:00)
[2021-09-30] MEDS: Gabapentin 300 MG CAP PO SCH (20:52)
[2021-09-30] MEDS: Melatonin 3 MG TAB PO SCH (20:53)
[2021-10-01] MEDS: Cyclobenzaprine 10 MG TAB PO PRN ×3 (06:11→21:08)
[2021-10-01] MEDS: traMADol HCl 50 MG TAB PO PRN ×2 (06:12→12:51)
[2021-10-01] MEDS: Midodrine HCl 5 MG TAB PO SCH ×3 (08:24→21:08)
[2021-10-01] MEDS: Gabapentin 300 MG CAP PO SCH ×3 (08:24→21:08)
[2021-10-01] MEDS: Senokot S 8.6-50 MG TAB PO SCH ×2 (08:25→23:48)
[2021-10-01] MEDS: Polyethylene Glycol 3350 17 GM Packet PO SCH (08:25)
[2021-10-01] MEDS: Enoxaparin Sodium 40 MG/0.4 ML SYRINGE SC SCH (08:25)
[2021-10-01] MEDS: Famotidine 20 MG TAB PO SCH ×2 (08:28→21:08)
[2021-10-01] MEDS: Melatonin 3 MG TAB PO SCH (21:08)
[2021-10-01] MEDS: Scopolamine 1.5 mg/72 hour Patch TD SCH (23:48)
[2021-10-02] MEDS: Sodium Chloride 0.65% Nasal 44 ML BOT EA NARE PRN (00:02)
[2021-10-02] MEDS: Cyclobenzaprine 10 MG TAB PO PRN ×2 (09:18→18:18)
[2021-10-02] MEDS: Gabapentin 300 MG CAP PO SCH (09:18)
[2021-10-02] MEDS: Senokot S 8.6-50 MG TAB PO SCH ×2 (09:19→20:56)
[2021-10-02] MEDS: Enoxaparin Sodium 40 MG/0.4 ML SYRINGE SC SCH (09:19)
[2021-10-02] MEDS: Midodrine HCl 5 MG TAB PO SCH ×3 (09:19→20:55)
[2021-10-02] MEDS: Polyethylene Glycol 3350 17 GM Packet PO SCH (09:19)
[2021-10-02] MEDS: Famotidine 20 MG TAB PO SCH ×2 (09:19→20:54)
[2021-10-02] MEDS: Gabapentin 400 MG CAP PO SCH ×2 (13:55→21:38)
[2021-10-02] MEDS: traMADol HCl 50 MG TAB PO PRN (13:56)
[2021-10-02] MEDS: Melatonin 3 MG TAB PO SCH (20:54)
[2021-10-03] MEDS: Gabapentin 400 MG CAP PO SCH ×3 (08:13→20:48)
[2021-10-03] MEDS: Enoxaparin Sodium 40 MG/0.4 ML SYRINGE SC SCH (08:14)
[2021-10-03] MEDS: Famotidine 20 MG TAB PO SCH ×2 (08:14→20:48)
[2021-10-03] MEDS: Midodrine HCl 5 MG TAB PO SCH ×3 (08:14→20:49)
[2021-10-03] MEDS: Cyclobenzaprine 10 MG TAB PO PRN (08:14)
[2021-10-03] MEDS: Senokot S 8.6-50 MG TAB PO SCH ×2 (09:21→20:49)
[2021-10-03] MEDS: Polyethylene Glycol 3350 17 GM Packet PO SCH (09:21)
[2021-10-03] MEDS: traMADol HCl 50 MG TAB PO PRN (10:16)
[2021-10-03] MEDS: Methocarbamol 500 MG TAB PO PRN (11:56)
[2021-10-03] MEDS: Melatonin 3 MG TAB PO SCH (20:49)
[2021-10-04] MEDS: Senokot S 8.6-50 MG TAB PO SCH ×2 (09:00→21:19)
[2021-10-04] MEDS: Polyethylene Glycol 3350 17 GM Packet PO SCH (09:00)
[2021-10-04] MEDS: Enoxaparin Sodium 40 MG/0.4 ML SYRINGE SC SCH (10:09)
[2021-10-04] MEDS: Midodrine HCl 5 MG TAB PO SCH ×3 (10:09→21:19)
[2021-10-04] MEDS: Gabapentin 400 MG CAP PO SCH (10:10)
[2021-10-04] MEDS: Famotidine 20 MG TAB PO SCH ×2 (10:10→21:19)
[2021-10-04] MEDS: Methocarbamol 500 MG TAB PO PRN ×2 (10:11→18:33)
[2021-10-04] MEDS ORDERED: Gabapentin 400 MG CAP PO SCH (15:00)
[2021-10-04] MEDS ORDERED: Gabapentin 300 MG CAP PO SCH ×2 (15:45→21:00)
[2021-10-04] MEDS: traMADol HCl 50 MG TAB PO PRN (18:33)
[2021-10-04] MEDS: Pregabalin 50 MG CAP PO SCH (21:18)
[2021-10-04] MEDS: Melatonin 3 MG TAB PO SCH (21:18)
[2021-10-04] MEDS: Scopolamine 1.5 mg/72 hour Patch TD SCH (21:29)
[2021-10-05] MEDS: Methocarbamol 500 MG TAB PO PRN ×2 (04:01→17:51)
[2021-10-05] MEDS: traMADol HCl 50 MG TAB PO PRN (04:01)
[2021-10-05] MEDS: Midodrine HCl 5 MG TAB PO SCH ×3 (09:13→21:40)
[2021-10-05] MEDS: Enoxaparin Sodium 40 MG/0.4 ML SYRINGE SC SCH (09:13)
[2021-10-05] MEDS: Famotidine 20 MG TAB PO SCH ×2 (09:14→21:40)
[2021-10-05] MEDS: Pregabalin 50 MG CAP PO SCH ×2 (09:14→21:40)
[2021-10-05] MEDS: Senokot S 8.6-50 MG TAB PO SCH ×2 (09:14→21:40)
[2021-10-05] MEDS: Polyethylene Glycol 3350 17 GM Packet PO SCH (09:14)
[2021-10-05] MEDS: Ondansetron ODT 4 MG TAB PO PRN (14:19)
[2021-10-05] MEDS: Melatonin 3 MG TAB PO SCH (21:40)
[2021-10-06] MEDS: traMADol HCl 50 MG TAB PO PRN (04:18)
[2021-10-06] MEDS: Enoxaparin Sodium 40 MG/0.4 ML SYRINGE SC SCH (09:43)
[2021-10-06] MEDS: Pregabalin 50 MG CAP PO SCH ×2 (09:44→20:11)
[2021-10-06] MEDS: Midodrine HCl 5 MG TAB PO SCH ×3 (09:44→20:11)
[2021-10-06] MEDS: Famotidine 20 MG TAB PO SCH ×2 (09:44→20:10)
[2021-10-06] MEDS: Senokot S 8.6-50 MG TAB PO SCH ×2 (09:56→20:34)
[2021-10-06] MEDS: Polyethylene Glycol 3350 17 GM Packet PO SCH (09:56)
[2021-10-06] MEDS: Cyclobenzaprine 10 MG TAB PO PRN (11:31)
[2021-10-06] MEDS: Melatonin 3 MG TAB PO SCH (20:12)
[2021-10-07] MEDS: Cyclobenzaprine 10 MG TAB PO PRN ×2 (07:50→20:42)
[2021-10-07] MEDS: Famotidine 20 MG TAB PO SCH ×2 (07:50→20:43)
[2021-10-07] MEDS: Midodrine HCl 5 MG TAB PO SCH ×3 (07:50→20:43)
[2021-10-07] MEDS: Enoxaparin Sodium 40 MG/0.4 ML SYRINGE SC SCH (07:50)
[2021-10-07] MEDS: Pregabalin 50 MG CAP PO SCH ×2 (07:51→20:42)
[2021-10-07] MEDS: Senokot S 8.6-50 MG TAB PO SCH ×2 (07:52→20:44)
[2021-10-07] MEDS: Polyethylene Glycol 3350 17 GM Packet PO SCH (07:52)
[2021-10-07] MEDS: traMADol HCl 50 MG TAB PO PRN (10:38)
[2021-10-07] MEDS: Melatonin 3 MG TAB PO SCH (20:43)
[2021-10-07] MEDS: Scopolamine 1.5 mg/72 hour Patch TD SCH (20:59)
[2021-10-08] MEDS: traMADol HCl 50 MG TAB PO PRN ×2 (04:03→14:19)
[2021-10-08] MEDS: Famotidine 20 MG TAB PO SCH ×2 (09:43→20:33)
[2021-10-08] MEDS: Pregabalin 50 MG CAP PO SCH ×2 (09:43→20:34)
[2021-10-08] MEDS: Enoxaparin Sodium 40 MG/0.4 ML SYRINGE SC SCH (09:43)
[2021-10-08] MEDS: Midodrine HCl 5 MG TAB PO SCH ×3 (09:43→20:33)
[2021-10-08] MEDS: Senokot S 8.6-50 MG TAB PO SCH ×2 (09:55→20:34)
[2021-10-08] MEDS: Polyethylene Glycol 3350 17 GM Packet PO SCH (09:55)
[2021-10-08] MEDS: Cyclobenzaprine 10 MG TAB PO PRN (15:35)
[2021-10-08] MEDS: Melatonin 3 MG TAB PO SCH (20:33)
[2021-10-09] MEDS: Cyclobenzaprine 10 MG TAB PO PRN ×3 (03:12→21:59)
[2021-10-09] MEDS: traMADol HCl 50 MG TAB PO PRN ×3 (05:58→21:58)
[2021-10-09] MEDS: Pregabalin 50 MG CAP PO SCH ×2 (09:55→21:54)
[2021-10-09] MEDS: Midodrine HCl 5 MG TAB PO SCH ×3 (09:55→21:54)
[2021-10-09] MEDS: Senokot S 8.6-50 MG TAB PO SCH (09:57)
[2021-10-09] MEDS: Polyethylene Glycol 3350 17 GM Packet PO SCH (09:57)
[2021-10-09] MEDS: Enoxaparin Sodium 40 MG/0.4 ML SYRINGE SC SCH (09:59)
[2021-10-09] MEDS: Famotidine 20 MG TAB PO SCH ×2 (10:00→21:55)
[2021-10-09 11:45] VITALS: BMI 22.0
[2021-10-09] MEDS: Melatonin 3 MG TAB PO SCH (21:54)
[2021-10-10] MEDS: Senokot S 8.6-50 MG TAB PO SCH ×2 (00:01→08:19)
[2021-10-10] MEDS: Enoxaparin Sodium 40 MG/0.4 ML SYRINGE SC SCH (08:16)
[2021-10-10] MEDS: Midodrine HCl 5 MG TAB PO SCH ×3 (08:17→22:28)
[2021-10-10] MEDS: Famotidine 20 MG TAB PO SCH ×2 (08:17→22:29)
[2021-10-10] MEDS: Pregabalin 50 MG CAP PO SCH ×2 (08:18→22:28)
[2021-10-10] MEDS: Cyclobenzaprine 10 MG TAB PO PRN ×3 (08:18→22:26)
[2021-10-10] MEDS: Polyethylene Glycol 3350 17 GM Packet PO SCH (08:18)
[2021-10-10] MEDS: Scopolamine 1.5 mg/72 hour Patch TD SCH (22:27)
[2021-10-10] MEDS: traMADol HCl 50 MG TAB PO PRN (22:27)
[2021-10-10] MEDS: Melatonin 3 MG TAB PO SCH (22:27)
[2021-10-11] MEDS: Senokot S 8.6-50 MG TAB PO SCH ×3 (01:13→21:52)
[2021-10-11] MEDS: Polyethylene Glycol 3350 17 GM Packet PO SCH (08:51)
[2021-10-11] MEDS: Famotidine 20 MG TAB PO SCH ×2 (08:51→21:51)
[2021-10-11] MEDS: Midodrine HCl 5 MG TAB PO SCH ×3 (08:51→21:51)
[2021-10-11] MEDS: Enoxaparin Sodium 40 MG/0.4 ML SYRINGE SC SCH (08:51)
[2021-10-11] MEDS: Pregabalin 50 MG CAP PO SCH ×2 (08:51→21:51)
[2021-10-11] MEDS: traMADol HCl 50 MG TAB PO PRN (15:18)
[2021-10-11] MEDS: Melatonin 3 MG TAB PO SCH (21:51)
[2021-10-11] MEDS: Cyclobenzaprine 10 MG TAB PO PRN (22:02)
[2021-10-12] MEDS: traMADol HCl 50 MG TAB PO PRN ×3 (04:09→23:06)
[2021-10-12] MEDS: Cyclobenzaprine 10 MG TAB PO PRN ×2 (04:11→14:55)
[2021-10-12] MEDS: Polyethylene Glycol 3350 17 GM Packet PO SCH (08:32)
[2021-10-12] MEDS: Senokot S 8.6-50 MG TAB PO SCH ×2 (08:32→21:09)
[2021-10-12] MEDS: Pregabalin 50 MG CAP PO SCH ×2 (09:13→20:25)
[2021-10-12] MEDS: Enoxaparin Sodium 40 MG/0.4 ML SYRINGE SC SCH (09:13)
[2021-10-12] MEDS: Midodrine HCl 5 MG TAB PO SCH ×3 (09:13→20:26)
[2021-10-12] MEDS: Famotidine 20 MG TAB PO SCH ×2 (09:13→20:26)
[2021-10-12] MEDS: Melatonin 3 MG TAB PO SCH (20:26)
[2021-10-12 21:40] LABS: SARS-CoV-2 NAA Rapid Test Not Detected (NotDetected)
[2021-10-13] MEDS: Cyclobenzaprine 10 MG TAB PO PRN (06:00)
[2021-10-13] MEDS: traMADol HCl 50 MG TAB PO PRN (06:00)
[2021-10-13 08:47] VITALS: BP 100/56; TEMP 98.4
[2021-10-13] MEDS: Enoxaparin Sodium 40 MG/0.4 ML SYRINGE SC SCH (09:48)
[2021-10-13] MEDS: Midodrine HCl 5 MG TAB PO SCH (09:49)
[2021-10-13] MEDS: Pregabalin 50 MG CAP PO SCH (09:50)
[2021-10-13] MEDS: Famotidine 20 MG TAB PO SCH (09:50)
== END 2021-10-13 10:15 | DRG 28 ==
LOC: ERS 07:47 → UNDOADMIN 08:32 → CCU 08:32 → SURG A 08-30 16:18
PROVIDERS: ADMIT Student in an Organized Health Care Education/Training Program; ATTEND Surgery
PROC: 0PS3XZZ Reposition Cervical Vertebra, External Approach (ICD-10-PCS; 2021-08-27)
PROC: 2W62X0Z Traction of Neck using Traction Apparatus (ICD-10-PCS; 2021-08-27)
PROC: 3E033XZ Introduction of Vasopressor into Peripheral Vein, Percutaneous Approach (ICD-10-PCS; 2021-08-27)
PROC: 5A1945Z Respiratory Ventilation, 24-96 Consecutive Hours (ICD-10-PCS; 2021-08-27)
PROC: 0BH17EZ Insertion of Endotracheal Airway into Trachea, Via Natural or Artificial Opening (ICD-10-PCS; 2021-08-27)
PROC: 0D9670Z Drainage of Stomach with Drainage Device, Via Natural or Artificial Opening (ICD-10-PCS; 2021-08-27)
PROC: 0RG20A0 Fusion of 2 or more Cervical Vertebral Joints with Interbody Fusion Device, Anterior Approach, Anterior Column, Open Approach (ICD-10-PCS; principal; 2021-08-29)
PROC: 0RB30ZZ Excision of Cervical Vertebral Disc, Open Approach (ICD-10-PCS; 2021-08-29)
DX: S14.105A Unspecified injury at C5 level of cervical spinal cord, initial encounter (principal); R53.2 Functional quadriplegia; J96.00 Acute respiratory failure, unspecified whether with hypoxia or hypercapnia; D62 Acute posthemorrhagic anemia; N17.9 Acute kidney failure, unspecified; E27.40 Unspecified adrenocortical insufficiency; S12.400A Unspecified displaced fracture of fifth cervical vertebra, initial encounter for closed fracture; S12.300A Unspecified displaced fracture of fourth cervical vertebra, initial encounter for closed fracture; S12.500A Unspecified displaced fracture of sixth cervical vertebra, initial encounter for closed fracture; Z20.822 Contact with and (suspected) exposure to COVID-19; E87.6 Hypokalemia; I95.1 Orthostatic hypotension; I10 Essential (primary) hypertension; G62.9 Polyneuropathy, unspecified; R40.2412 Glasgow coma scale score 13-15, at arrival to emergency department; E83.39 Other disorders of phosphorus metabolism; Z91.018 Allergy to other foods; V49.9XXA Car occupant (driver) (passenger) injured in unspecified traffic accident, initial encounter; Y92.410 Unspecified street and highway as the place of occurrence of the external cause; Z78.1 Physical restraint status; R00.1 Bradycardia, unspecified
CPT/HCPCS: 31500; 36415; 36416; 36600; 70450; 70498; 71045; 71260; 72020; 72040; 72125; 72141; 72146; 74018; 74177; 76000; 80048; 80053; 80076; 80306; 80307; 81003; 82040; 82533; 82565; 82805; 83605; 83735; 84100; 84703; 85014; 85018; 85025; 85049; 85610; 85730; 86850; 86900; 86901; 90471; 90715; 93005; 93010; 94002; 94003; 94640; 96374; 96375; 96376; C1713; C1776; C9113; G0390; J0171; J0690; J1100; J1642; J1650; J1720; J2060; J2250; J2405; J2550; J2704; J3010; J3475; J3480; J3490; J7050; J7120; J7620; P9045; Q0162; S0028; U0002; U0003; U0005

== ENCOUNTER 2021-11-20 09:45 | Outpatient (CLI) | payer OTHER | END 2021-11-20 09:46 | disposition home or self-care (01) | LOC: TBSIIMAG 09:45 | PROVIDERS: ATTEND Neurological Surgery | DX: S12.400A Unspecified displaced fracture of fifth cervical vertebra, initial encounter for closed fracture (principal); S12.300A Unspecified displaced fracture of fourth cervical vertebra, initial encounter for closed fracture | CPT/HCPCS: 72040 ==